=== PATIENT | male | born 1995 | race American Indian/Alaskan Native ===

== ENCOUNTER 2019-05-30 20:29 | Emergency (ER) | payer SELFPAY ==
[2019-05-30] MEDS ORDERED: IBUPROFEN 600 MG TAB PO ONE (22:49)
--- NOTE | 2019-05-30 23:15 | Emergency Department Report ---
- General Chief Complaint: Upper Respiratory Infection Stated Complaint: SPITTING UP BLOOD/FEVER Time Seen by Provider: 05/30/19 22:23 Source: patient Mode of arrival: Ambulatory Limitations: No Limitations - History of Present Illness Initial Comments: Patient is a 24-year-old male presents emergency room with complaints of URI symptoms that began a week ago. He has associated productive cough, fever, headache, rhinorrhea, congestion. He states that yesterday after frequent coughing he had one episode of blood tinged sputum. He denies any sore throat, ear pain, chest pain, shortness of breath. He denies any past medical history or allergies medications. He endorses tobacco and marijuana use. - Related Data Previous Rx's Medication Instructions Recorded Last Taken Type Azithromycin [Zithromax TAB] 250 mg PO QDAY 5 Days #6 tablet 05/30/19 Unknown Rx predniSONE [Deltasone] 40 mg PO QDAY 5 Days #10 tab 05/30/19 Unknown Rx Allergies Allergy/AdvReac Type Severity Reaction Status Date / Time No Known Allergies Allergy Unverified 05/30/19 20:41 ED Review of Systems ROS: Stated complaint: SPITTING UP BLOOD/FEVER Other details as noted in HPI Comment: All other systems reviewed and negative ED Past Medical Hx - Past Medical History Previous Medical History?: No - Surgical History Past Surgical History?: No - Social History Smoking Status: Never Smoker Substance Use Type: None - Medications Home Medications: Home Medications Medication Instructions Recorded Confirmed Last Taken Type Azithromycin [Zithromax TAB] 250 mg PO QDAY 5 Days #6 tablet 05/30/19 Unknown Rx predniSONE [Deltasone] 40 mg PO QDAY 5 Days #10 tab 05/30/19 Unknown Rx ED Physical Exam - General Limitations: No Limitations General appearance: alert, in no apparent distress - Head Head exam: Present: atraumatic, normocephalic - Eye Eye exam: Present: normal appearance - ENT ENT exam: Present: mucous membranes moist - Respiratory Respiratory exam: Present: normal lung sounds bilaterally. Absent: respiratory distress, wheezes, rales, rhonchi, stridor, chest wall tenderness, accessory muscle use, decreased breath sounds, prolonged expiratory - Cardiovascular Cardiovascular Exam: Present: regular rate, normal rhythm, normal heart sounds. Absent: systolic murmur, diastolic murmur, rubs, gallop - Neurological Exam Neurological exam: Present: alert, oriented X3 - Psychiatric Psychiatric exam: Present: normal affect, normal mood - Skin Skin exam: Present: warm, dry, intact ED Course Vital Signs 05/30/19 05/30/19 05/31/19 20:34 20:40 00:10 Temperature 100.1 F H 100.0 F H 100.1 F H Pulse Rate 101 H 103 H 107 H Respiratory 18 18 18 Rate Blood Pressure 115/75 115/75 116/71 O2 Sat by Pulse 98 98 95 Oximetry 05/31/19 00:14 Temperature Pulse Rate Respiratory 18 Rate Blood Pressure O2 Sat by Pulse 100 Oximetry ED Medical Decision Making - Radiology Data Radiology results: report reviewed CHEST 2 VIEWS INDICATION / CLINICAL INFORMATION: cough, fever x1 week. COMPARISON: None available. FINDINGS: SUPPORT DEVICES: None. HEART / MEDIASTINUM: No significant abnormality. LUNGS / PLEURA: No significant pulmonary or pleural abnormality. No pneumothorax. ADDITIONAL FINDINGS: No significant additional findings. IMPRESSION: 1. No acute findings. Signer Name: Chandana Higuera MD Signed: 05/30/2019 11:09 PM Workstation Name: [id number] Transcribed By: LAURA Dictated By: Chandana Higuera MD Electronically Authenticated By: Chandana Higuera MD Signed Date/Time: 05/30/19 9063 - Medical Decision Making Patient is a 24-year-old male presents emergency room with complaints of URI symptoms that began a week ago. He has associated productive cough, fever, headache, rhinorrhea, congestion. He states that yesterday after frequent coughing he had one episode of blood tinged sputum. He denies any sore throat, ear pain, chest pain, shortness of breath. He denies any past medical history or allergies medications. He endorses tobacco and marijuana use. Vitals with low-grade temp and mild tachycardia. Chest x-ray with no acute findings. pt will be treated for acute bronchitis, given prescription for azithromycin and prednisone. advised pt to Please take medication as prescribed. May take Robitu ssin [id number] for coughing. May take Tylenol or ibuprofen for any discomfort. May use a humidifier. Drink warm soup broth, drink warm tea. Follow-up with a primary care doctor in the next 2-3 days. Return to the emergency room for any new or worsening symptoms. - Differential Diagnosis PNA, URI, bronchitis, viral syndrome Critical care attestation.: If time is entered above; I have spent that time in minutes in the direct care of this critically ill patient, excluding procedure time. ED Disposition Clinical Impression: Acute bronchitis Qualifiers: Bronchitis organism: unspecified organism Qualified Code(s): J20.9 - Acute bronchitis, unspecified Disposition: DC-01 TO HOME OR SELFCARE Is pt being admited?: No Does the pt Need Aspirin: No Condition: Stable Instructions: Acute Bronchitis (ED) Additional Instructions: Please take medication as prescribed. May take Robitussin [id number] for coughing. May take Tylenol or ibuprofen for any discomfort. May use a humidifier. Drink warm soup broth, drink warm tea. Follow-up with a primary care doctor in the next 2-3 days. Return to the emergency room for any new or worsening symptoms. Prescriptions: predniSONE [Deltasone] 40 mg PO QDAY 5 Days #10 tab Azithromycin [Zithromax TAB] 250 mg PO QDAY 5 Days #6 tablet Referrals: JEB SEXTON MD [Staff Physician] - 2-3 Days [facility] [Outside] - 2-3 Days Time of Disposition: 23:38 Print Language: [place]
[2019-05-31 00:14] VITALS: BP 116/71
== END 2019-05-31 00:17 | disposition home or self-care (01) ==
LOC: ED 20:29
DX: J20.9 Acute bronchitis, unspecified (principal)
CPT/HCPCS: 71046